=== PATIENT | male | born 1955 | race Caucasian/White ===

== ENCOUNTER 2021-05-22 16:39 | Emergency (ER) | payer OTHER, SELFPAY ==
[2021-05-22 16:56] VITALS: BP 151/78; PULSE 66; RESP 16; TEMP 36.9; O2SAT 98
--- NOTE | 2021-05-22 17:45 | DI.RAD_ITS ---
Exam(s) XR SHOULDER RT COMPLETE 2+V EXAM: XR SHOULDER RT COMPLETE 2+V CLINICAL HISTORY: fall/pain TECHNIQUE: COMPARISON: No exams were available for comparison FINDINGS: Five views were obtained. There is lucency of the greater tuberosity of the humerus which is likely to represent a nondisplaced fracture at this site. No additional fracture seen. No glenohumeral dis location. IMPRESSION: RADIATION DOSE DELIVERED: Total DLP
--- NOTE | 2021-05-22 17:48 | ED.GENADUL_ITS ---
Discharge Plan Disposition Patient Disposition: HOME Condition: Stable Discharge Details Clinical Impression: Humeral fracture Primary Care Provider: None,None ED Provider: Wilian Appiah Home Meds and New Rx's Prescriptions: Continued iron 18 MG tablet 0RF Discharge Instructions Additional Instructions: X-ray reveals fracture, I spoke with our orthopedic team who is aware of your injury, recommends placing you into a sling and they will be happy to see you in the office. [id number] Tylenol and/or Motrin as directed for discomfort. Cool compresses every 2 hours for 20 minutes. Please watch for new or worsening symptoms and return to the ER for any concerns. Please contact the office of Dr. Telles Monday morning to set up outpatient. Referrals: Naif Telles MD [ [facility] STAFF PHYSICIAN] - Medical Decision Making 65-year-old gentleman, [id number], reports falling at work twice 1 week ago injuring his right shoulder. He denies any other injuries. He reports that the shoulder is not improving so he came to the ER for further evaluation. No obvious deformity, no obvious dislocation but concern for fracture versus internal derangement X-ray reveals a nondisplaced fracture of the greater humeral tuberosity Case discussed with Dr. Telles, recommends sling and he will be happy to see the patient in his office next week Discussed x-ray and plan with patient. Sling applied. He has no additional questions or concerns and is comfortable discharge. He was placed on the orthopedic list. Standard discharge and return precautions provided This documentation was generated using [employer] dictation system, please disregard any oddities of phrase or misspellings. Medical Records Medical records reviewed: Yes I reviewed the patient's medical records. Imaging Data Radiologic Study: Attestation: I personally reviewed and interpreted this imaging study as follows: Imaging: X-Ray Radiologist's impression: PROCEDURE INFORMATION: Exam: XR Right Shoulder Exam date and time: 05/22/2021 5:46 PM Age: 65 years old Clinical indication: Injury or trauma; Fall; Blunt trauma (contusions or hematomas); Shoulder; Right; Injury date: 05/16/21 TECHNIQUE: Imaging protocol: XR Right shoulder. Views: 2 or more views. COMPARISON: No relevant prior studies available. FINDINGS: Bones/joints: AP view of the shoulder suggests a subtle fracture involving the greater tuberosity of the humerus. The fracture is nondisplaced and is not seen on other projections. The glenohumeral and acromioclavicular joints are normal. Soft tissues: Normal. No calcification. IMPRESSION: Suspected nondisplaced fracture involving the greater humeral tuberosity. HPI General Mode of arrival: ambulatory . Date/Time Provider Initiated Documentation: 05/22/21 17:09 . Limitations to Documentation: no limitations . Information obtained by: patient . History of Present Illness 65 year old M presents to the emergency department with the chief complaint of R shoulder pain, described as moderate, with intensity rated at 7. Quality is described as aching, and is localized to the right and upper extremity. Patient reports no radiation. Patient started experiencing this week(s) (1) and it has been constant. improves with Immobilization improves symptom(s), Movement worsens symptoms . Patient notes no other symptoms.. Patient did receive the following treatments prior to arrival, NSAID Related Data Home Medications Medication Instructions Recorded Confirmed iron 18 mg tablet 04/03/17 Allergies Allergy/AdvReac Type Severity Reaction Status Date / Time codeine AdvReac Unverified 05/22/21 17:02 General Stated Complaint: Orthopedic IVETTE: 4 Review of Systems Constitutional Constitutional: Denies headache(s) ENT Ears, Nose, Mouth, and Throat: Denies headache(s) and Denies neck pain Musculoskeletal Musculoskeletal: Denies deformity, Reports arthralgias, Denies neck pain, Denies numbness, Reports stiffness and Denies tingling Integumentary/Breasts Skin/Breast: Denies rash Neurologic Neurologic: Denies headache(s), Denies numbness and Denies tingling PFSH All Active Problems Humeral fracture (Acute) Social History Smoking/Tobacco Use Status: Former Tobacco Use Smoking risk assessment performed?: Yes Drug use: Never Substance use type: does not use Do you feel safe in your relationship?: Yes Exam Const General: cooperative, healthy appearing, comfortable and no acute distress Orientation: alert and awake [facility] Head: normal to inspection, normocephalic and atraumatic Eyes General: appearance normal, both eyes and all related structures Conjunctivae: conjunctivae normal Neck Neck: normal visual inspection, full ROM, trachea midline, supple and nontender Chest Chest: normal inspection of the chest and normal palpation of entire chest wall Resp Effort & Inspection: normal respiratory effort and able to speak in complete sentences Auscultation: clear to auscultation bilaterally Cardio Rate: regular rate Rhythm: regular rhythm Back/Spine/Pelvis Back: No back tenderness Skin General skin exam: no rashes or lesions noted Neuro General: patient alert, patient awake, moves all extremities and no focal motor deficits Cognition: normal cognition Speech: speech normal Gait: normal gait Motor: muscle tone normal throughout Sensory Exam: no sensory deficits noted Extrem Other: Right shoulder visual inspection unremarkable. Right elbow, forearm, wrist, hand unremarkable. Normal radial pulse and capillary refill. Arm is held in adduction. The right shoulder has limited range of motion secondary to discomfort, difficulty raising above 90 degrees. Diffuse superior and lateral shoulder discomfort. No obvious deformity. Skin is intact. Psych Appearance: grossly normal Mental Status: mental status grossly normal Course Vital Signs Vital signs: Vital Signs Temperature 36.9 C 05/22/21 16:56 Pulse 66 05/22/21 16:56 Respiratory Rate 16 05/22/21 16:56 Blood Pressure 151/78 H 05/22/21 16:56 Pulse Oximetry 98 05/22/21 16:56 Temperature 36.9 C 05/22/21 16:56 Temperature Source Skin 05/22/21 16:56 Pulse 66 05/22/21 16:56 Respiratory Rate 16 05/22/21 16:56 Respiratory Effort 05/22/21 16:56 Blood Pressure 151/78 H 05/22/21 16:56 Blood Pressure Position Sitting 05/22/21 16:56 Pulse Oximetry 98 05/22/21 16:56 Oxygen Delivery Method Room Air 05/22/21 16:56 Oxygen Flow Rate 0 05/22/21 16:56 Pain Level 6 05/22/21 16:56
--- NOTE | 2021-05-22 18:38 | DI.VRAD_ITS ---
PROCEDURE INFORMATION: Exam: XR Right Shoulder Exam date and time: 05/22/2021 5:46 PM Age: 65 years old Clinical indication: Injury or trauma; Fall; Blunt trauma (contusions or hematomas); Shoulder; Right; Injury date: 05/16/21 TECHNIQUE: Imaging protocol: XR Right shoulder. Views: 2 or more views. COMPARISON: No relevant prior studies available. FINDINGS: Bones/joints: AP view of the shoulder suggests a subtle fracture involving the greater tuberosity of the humerus. The fracture is nondisplaced and is not seen on other projections. The glenohumeral and acromioclavicular joints are normal. Soft tissues: Normal. No calcification. IMPRESSION: Suspected nondisplaced fracture involving the greater humeral tuberosity. Dictated and Authenticated by: Alfredo Barraza MD. Ordering:RAMON Cedeno MD
== END 2021-05-22 18:51 | disposition home or self-care (01) ==
LOC: RED 17:06 → ER 17:08
PROVIDERS: Emergency Provider Physician Assistant
DX: S42.254A Nondisplaced fracture of greater tuberosity of right humerus, initial encounter for closed fracture (principal); W18.39XA Other fall on same level, initial encounter; Y99.0 Civilian activity done for income or pay
CPT/HCPCS: 99283; 73030

== ENCOUNTER 2021-06-07 15:21 | Outpatient (CLI) | payer OTHER, SELFPAY ==
--- NOTE | 2021-06-07 13:45 | DI.RAD_ITS ---
Exam(s) XR SHOULDER RT COMPLETE 2+V EXAM: XR SHOULDER RT COMPLETE 2+V CLINICAL HISTORY: right humerus fracture. TECHNIQUE: 2D digital imaging was performed. COMPARISON: CR,XR XR SHOULDER RT COMPLETE 2+V from 05/22/2021 FINDINGS: Two views, compared to prior study 05/22/2021 There is a fracture of the greater tuberosity noted. This is similar in appearance to the May 22 images. No significant displacement at this time. IMPRESSION: DATA REPOSITORY: RADIATION DOSE DELIVERED:
== END 2021-06-07 15:22 | disposition home or self-care (01) ==
LOC: DIORS 15:21
PROVIDERS: Visit Provider Physician Assistant
DX: S42.254A Nondisplaced fracture of greater tuberosity of right humerus, initial encounter for closed fracture (principal); W18.39XA Other fall on same level, initial encounter
CPT/HCPCS: 73030

== ENCOUNTER 2021-07-19 14:28 | Outpatient (CLI) | payer OTHER, SELFPAY ==
--- NOTE | 2021-07-19 14:15 | DI.RAD_ITS ---
Exam(s) XR SHOULDER RT COMPLETE 2+V EXAM: XR SHOULDER RT COMPLETE 2+V INDICATION: right humerus fracture. COMPARISON: CR,XR XR SHOULDER RT COMPLETE 2+V from 05/22/2021 CR XR SHOULDER RT COMPLETE 2+V from 06/07/2021 TECHNIQUE: 2D digital imaging was performed. Two views. FINDINGS: There has been no change in the position of the nondisplaced fracture fragment at the greater tubero sity. No new findings. DATA REPOSITORY: RADIATION DOSE DELIVERED:
== END 2021-07-19 14:29 | disposition home or self-care (01) ==
LOC: DIORS 14:29
PROVIDERS: Visit Provider Student in an Organized Health Care Education/Training Program
DX: S42.254D Nondisplaced fracture of greater tuberosity of right humerus, subsequent encounter for fracture with routine healing (principal); W18.39XD Other fall on same level, subsequent encounter
CPT/HCPCS: 73030

== ENCOUNTER 2021-08-23 15:32 | Outpatient (CLI) | payer OTHER, SELFPAY ==
--- NOTE | 2021-08-23 15:15 | DI.RAD_ITS ---
Exam(s) XR SHOULDER RT COMPLETE 2+V EXAM: XR SHOULDER RT COMPLETE 2+V INDICATION: follow up. COMPARISON: CR XR SHOULDER RT COMPLETE 2+V from 06/07/2021 CR XR SHOULDER RT COMPLETE 2+V from 07/19/2021 TECHNIQUE: 2D digital imaging was performed. Two views. FINDINGS: There is continued healing at the greater tuberosity fracture. No new abnormalities are seen. DATA REPOSITORY: RADIATION DOSE DELIVERED:
== END 2021-08-23 15:33 | disposition home or self-care (01) ==
LOC: DIORS 15:33
PROVIDERS: Visit Provider Physician Assistant Surgical
DX: S42.254D Nondisplaced fracture of greater tuberosity of right humerus, subsequent encounter for fracture with routine healing (principal); W18.39XD Other fall on same level, subsequent encounter
CPT/HCPCS: 73030

== ENCOUNTER 2022-01-21 10:18 | Outpatient (CLI) | payer MEDICARE, SELFPAY ==
--- NOTE | 2022-01-21 | DI.RAD_ITS ---
Exam(s) XR WRIST LT COMPLETE EXAM: XR WRIST LT COMPLETE CLINICAL HISTORY: eal L wrist pain and swelling, h/o fusion. TECHNIQUE: 2D digital imaging was performed. COMPARISON: CR RIGHT WRIST COMPLETE from 05/07/2009 CR RIGHT WRIST COMPLETE from 06/09/2009 CR RIGHT WRIST COMPLETE from 07/02/2009 CR RIGHT WRIST COMPLETE from 08/03/2009 CR XR WRIST RT COMPLETE from 01/21/2022 FINDINGS: Three views left wrist: There is a dorsal fusion plate extending from the distal 3rd of the radius to the mid aspect of the 3 rd metacarpal. The plate is fractured at its mid aspect dorsal to the radiocarpal joint. There is an additional obl ique longer screw at this level which extends into the scaphoid-navicular bone. There is some fusion evident. However, there is significant lucency around the plate at the metacarp al level, consistent with loosening. There is no radiographic evidence of osteomyelitis. IMPRESSION: Fractured mid level of the plate and loosening of the distal aspect of the plate at the 3rd metacarpa l level. DATA REPOSITORY: RADIATION DOSE DELIVERED:
--- NOTE | 2022-01-21 10:15 | DI.RAD_ITS ---
Exam(s) XR WRIST RT COMPLETE EXAM: XR WRIST RT COMPLETE CLINICAL HISTORY: eval worsening pain and swelling. h/o fusion. TECHNIQUE: 2D digital imaging was performed. COMPARISON: CR RIGHT WRIST COMPLETE from 08/03/2009 FINDINGS: 3 views Dorsal fusion plate again noted which is not fractured and does not reveal evidence loosening. There has been progressive osseous fusion across the radiocarpal joint as well as across the capitate . IMPRESSION: Fusion evident. Intact hardware with no evidence of loosening (as is evident on the opposite-left si de) DATA REPOSITORY: RADIATION DOSE DELIVERED:
== END 2022-01-21 10:19 | disposition home or self-care (01) ==
LOC: DIORS 10:18
PROVIDERS: Visit Provider Student in an Organized Health Care Education/Training Program
DX: G56.03 Carpal tunnel syndrome, bilateral upper limbs; M25.531 Pain in right wrist; M25.532 Pain in left wrist
CPT/HCPCS: 99213; 73110

== ENCOUNTER → 2022-02-18 08:39 | Outpatient (BNVA) | payer MEDICARE, SELFPAY | PROVIDERS: Visit Provider Student in an Organized Health Care Education/Training Program | DX: M25.531 Pain in right wrist (principal); M25.532 Pain in left wrist; G56.03 Carpal tunnel syndrome, bilateral upper limbs; T84.84XA Pain due to internal orthopedic prosthetic devices, implants and grafts, initial encounter | CPT/HCPCS: 99213 ==

== ENCOUNTER → 2022-04-15 08:49 | Outpatient (BNVA) | payer MEDICARE, SELFPAY | PROVIDERS: Visit Provider Student in an Organized Health Care Education/Training Program | DX: G56.03 Carpal tunnel syndrome, bilateral upper limbs (principal); T84.84XA Pain due to internal orthopedic prosthetic devices, implants and grafts, initial encounter | CPT/HCPCS: 99212 ==

== ENCOUNTER 2022-04-25 03:23 | Outpatient (CLI) | payer MEDICARE, SELFPAY ==
[2022-04-25 16:52] LABS: ESR 69 mm/hr (0-20)
[2022-04-25 17:37] LABS: C-Reactive Protein 2.43 mg/dL (0.0-0.3)
[2022-04-26 17:44] LABS: Rheumatoid Factor 96.3 IU/mL (<12.0)
[2022-04-28 14:50] LABS: ANA Interpretation Positive (Negative); ANA Titer Pattern 1:320 Homogeneous
== END 2022-04-25 03:24 | disposition home or self-care (01) ==
LOC: LBO 03:23
PROVIDERS: Visit Provider Student in an Organized Health Care Education/Training Program
DX: M25.50 Pain in unspecified joint (principal); M25.531 Pain in right wrist; M25.532 Pain in left wrist; M79.641 Pain in right hand; M79.642 Pain in left hand; R20.0 Anesthesia of skin; R20.2 Paresthesia of skin; G56.03 Carpal tunnel syndrome, bilateral upper limbs
CPT/HCPCS: 36415; 85652; 86038; 86140; 86431

== ENCOUNTER 2022-04-27 06:53 | Day surgery (SDC) | payer MEDICARE, SELFPAY ==
[2022-04-27 07:00] VITALS: BP 126/78; PULSE 105; RESP 18; TEMP 37.1; O2SAT 98
--- NOTE | 2022-04-27 07:15 | W.PREOPHP ---
Assessment and Plan Assessment and plan (1) Painful orthopaedic hardware: Status: Acute (2) Bilateral carpal tunnel syndrome: Status: Acute Assessment and plan: Damion is a 66-year-old who has painful heart about the left wrist. He also has bilateral carpal tunnel syndrome. Please the previous office note for complete detailed history. However, he is here today for left carpal tunnel release as well as left hardware removal. This will be followed by the right carpal tunnel release in about 2 weeks. I discussed the surgery with him. I reviewed the risk of the procedure to include bleeding, infection, pain, stiffness, damage nerves and vessels, damage to muscle and tendons, incomplete release, persistent numbness. Despite these risk, he elects to proceed. History of Present Illness History of Present Illness Chief Complaint: Painful left wrist hardware, bilateral carpal tunnel syndrome Narrative: Damion is a 66-year-old who has had previous surgery to both wrists. He has broken hardware in the left wrist which is causing pain and potentially causing damage to nearby tendons and is therefore need to be removed. He also has bilateral carpal tunnel syndrome. Please the previous office notes for complete detailed history. However, he is here today for the left hardware removal with left carpal tunnel release to be followed by the right side in the near future. He denies any new medical issues. No chest pain or shortness of breath. No new numbness or tingling except for his ongoing carpal tunnel syndrome. Review of Systems All systems reviewed & are unremarkable except as noted in HPI and below PFSH All Active Problems Right wrist pain (Acute) Bilateral carpal tunnel syndrome (Acute) Left wrist pain (Acute) Painful orthopaedic hardware (Acute) Polyarthralgia (Acute) Medical History Arthritis Surgical History H/O foot surgery broke toes and re-aligned History of gastric surgery open stomach surgery, partial removal of stomach Status post fusion of wrist left Status post fusion of wrist right Social History Smoking/Tobacco Use Status: Former Tobacco Use Quit Date: 03/20/99 Smoking risk assessment performed?: Yes Drug use: Never Substance use type: does not use Do you feel safe at home: Yes Do you feel safe in your relationship?: Yes Meds Allergies and Home Medications Allergies Allergy/AdvReac Type Severity Reaction Status Date / Time codeine AdvReac Unknown UNKNOWN Unverified 04/25/22 14:47 seafood Allergy Intermediate Other (See Uncoded 04/25/22 14:47 Comment) Home Medications Medication Instructions Recorded Confirmed Type iron 18 mg tablet 18 mg PO DIRECTED 04/03/17 04/27/22 History celecoxib 200 mg capsule 200 mg PO BID PRN pain #60 caps 02/18/22 04/27/22 Rx Exam Const General: cooperative, healthy appearing, comfortable and no acute distress Resp Auscultation: clear to auscultation bilaterally Cardio Rate: regular rate Rhythm: regular rhythm
--- NOTE | 2022-04-27 07:17 | W.PM.DSUDISC ---
Date of service: 04/27/22 Time of Service: 09:59 Discharge Plan Disposition Patient Disposition: Home Condition: Good Discharge Details Reason For Visit: Left wrist painful hardware and carpal tunnel Attending Provider: Naif Telles Primary Care Provider: Unknown,Unknown Home Meds and New Rx's Prescriptions: New hydrocodone-acetaminophen 5-325 mg tablet 1 tab PO Q6H PRN (Reason: severe pain) Qty: 6 0RF Rx Instructions: Take one tablet up to every 6 hours as needed for severe postoperative pain acetaminophen 500 mg tablet 500 mg PO Q6H PRN (Reason: pain) Qty: 60 2RF Continued celecoxib 200 mg capsule 200 mg PO BID PRN (Reason: pain) Qty: 60 3RF iron 18 MG tablet 18 mg PO DIRECTED Discharge Instructions Additional Instructions: Wrist Hardware Removal And Carpal Tunnel Release Discharge Instructions Activity: You should keep the hand/wrist elevated as much as possible for the first few days. You may use the other fingers as tolerated but avoid trying to do too much too soon. You may perform light activities with the splint in place. Dressing/Cast: Your splint should stay in place at all times. Do NOT get it wet. You may loosen the ALEXANDRU wrap if you feel it is too tight and then rewrap more loosely. Medications: - You should take Tylenol and Celebrix for baseline pain control. - You have been prescribed a stronger pain medication, Hydrocodone, for breakthrough pain. - You may apply ice over the wrist, just double bag so it doesn't get wet. Follow-up: 10-14 days Stand Alone Forms: Koki Ibarra Tunnel Evan Mckinnon (TIGIST) Equipment/Supplies: Sling Activity:: Elevate Remove Dressings/Wound Care:: Do Not Remove Shower/Bathe:: Cover Diet:: As Tolerated Discharge Orders Discharge Orders: Discharge Order (Routine); Ordered 04/27/22 Ordered By: Gabriela Arita DS: Diagnosis Discharge Diagnosis (1) Painful orthopaedic hardware: Status: Acute (2) Bilateral carpal tunnel syndrome: Status: Acute
--- NOTE | 2022-04-27 07:24 | ANES.PREOP_ITS ---
General Info Date of Service Date Performed: 04/27/22 Height: 5 ft 8 in Weight: 57.8 kg Body Mass Index (BMI): 19.3 Surgical Procedure: Operation Date: 04/27/22 08:10 Proposed Procedure Side Surgeon p Hardware Removal Wrist Left Naif Telles MD s Wrist ECTR Left Naif Telles MD Meds Allergies and Home Medications Allergies Allergy/AdvReac Type Severity Reaction Status Date / Time codeine AdvReac Unknown UNKNOWN Unverified 04/25/22 14:47 seafood Allergy Intermediate Other (See Uncoded 04/25/22 14:47 Comment) Home Medication Medication Instructions Recorded iron 18 mg tablet 18 mg PO DIRECTED 04/03/17 celecoxib 200 mg capsule 200 mg PO BID PRN pain #60 caps 02/18/22 Current Visit Medications: Current Medications Generic Name Dose Route Start Last Admin Trade Name Freq PRN Reason Stop Dose Admin Acetaminophen 650 mg 04/27/22 07:16 Acetaminophen 325 Mg Tab PO Q4H PRN PRN Hydrocodone Bitart/Acetaminophen 0 tab 04/27/22 07:16 Hydrocodone 5/Acetaminophen 325 Tab PO Q3H PRN PRN Pain Ringer's Solution 1,000 mls @ 80 mls/hr 04/27/22 06:00 IV 05/26/22 23:59 INFUSION HECTOR Cefazolin Sodium/Dextrose 2 gm in 50 mls @ 100 mls/hr 04/27/22 06:00 Ancef Duplex IVPB 04/27/22 16:00 PREOP HECTOR IV Miscellaneous Supplies 1 each 04/27/22 06:00 Iv Access IV 05/26/22 23:59 DIRECTED HECTOR Sodium Chloride 0 ml 04/27/22 06:00 Normal Saline Flush 10 Ml Syr IV 05/26/22 23:59 PRN PRN Sodium Chloride 0 ml 04/27/22 06:00 Normal Saline 10 Ml Vial IJ 05/26/22 23:59 DIRECTED PRN Sterile Water 0 ml 04/27/22 06:00 Water,Injection,Sterile 10 Ml Vial IJ 05/26/22 23:59 DIRECTED PRN PFSH Active Problems Active Problems: Problem Status Onset Code Right wrist pain M25.531 Bilateral carpal tunnel syndrome G56.03 Left wrist pain M25.532 Painful orthopaedic hardware T84.84XA Polyarthralgia M25.50 Medical History Medical History Arthritis Surgical History Surgical History (Updated 04/27/22 @ 07:22 by Janiya Gan RN) H/O foot surgery broke toes and re-aligned History of gastric surgery open stomach surgery, partial removal of stomach Status post fusion of wrist left Status post fusion of wrist 05/27/09 right Tobacco Smoking/Tobacco Use Status: Former Tobacco Use Substance Use Substance use: Never Substance use type: does not use Vital Signs and Lab Results Vital Signs Most Recent Vital Signs in EMR: Most Recent Vital Signs Temp Pulse Resp BP Pulse Ox 37.1 C 105 H 18 126/78 98 04/27/22 07:00 04/27/22 07:00 04/27/22 07:00 04/27/22 07:00 04/27/22 07:00 Lab Results Blood Type / Crossmatch: No Data to Display Complete Blood Count: No Data to Display Complete Metabolic Panel: C-Reactive Protein 2.43 mg/dL (0.0-0.3) H 04/25/22 16:37 Liver Function Panel: No Data to Display Coagulation Panel: No Data to Display Cardiac Panel: No Data to Display Arterial Blood Gas: No Data to Display Venous Blood Gas: No Data to Display Pancreas Panel: No Data to Display Thyroid Panel: 2 No Data to Display Infectious Disease: No Data to Display Blood Cultures: No Data to Display Toxicology Panel: No Data to Display Anesthesia Assessment and Plan Anesthesia History Personal History: No History of Anesthesia Complications Family History: No Family History of Anesthesia Complications Exercise Tolerance Exercise Tolerance: Metabolic Equivalents>4 Pertinent Negatives Pertinent Negatives: No Symptoms of GERD Cardiac & Pulmonary Exam Cardiac Exam: Normal S1/S2 Heart Sounds Pulmonary Exam: Clear Bilateral Breath Sounds Implantable Cardiac Device Does patient have a Pacemaker or an ICD?: No Airway Exam Known Difficult Airway: No Mallampati Class: 2 Mouth Opening: Normal (> 3cm) Thyromental Distance: Greater than 3 cm Neck Range of Motion: Full ROM Neck Circumference: Normal Teeth Condition: Removable Dentures/Plates Upper ASA Classification ASA Score: ASA 2 Emergency Case?: No NPO Status NPO Status: NPO Clears >2 hours, Solids >8 hours Anesthesia Plan Resuscitation Status: Full Code Anesthesia Technique: General Anesthesia Airway Planned: LMA Monitors Used: Standard Monitors
[2022-04-27 07:30] VITALS: BMI 19.3
[2022-04-27] MEDS: Lactated Ringers 1,000 ML 80 ML IV (07:44)
[2022-04-27] MEDS: ceFAZolin 2 GM/50 ML BAG IVPB (07:57)
[2022-04-27] MEDS: Bupivacaine 0.25% Pres-Free 30 ML VIAL (08:33)
[2022-04-27 09:20] VITALS: BP 130/73; PULSE 75; RESP 16; TEMP 36.1; O2SAT 97
--- NOTE | 2022-04-27 09:31 | W.ANESPOSTOP ---
Postoperative Evaluation Date, Time and Location Date Performed: 04/27/22 Time Performed: 09:31 Patient Location: Day Surgery Unit Vital Signs Most Recent Imported Vital Signs: Most Recent Vital Signs Temp Pulse Resp BP Pulse Ox 36.1 C L 75 16 130/73 97 04/27/22 09:20 04/27/22 09:20 04/27/22 09:20 04/27/22 09:20 04/27/22 09:20 Pain Score Most Recent Pain Score: Most Recent Pain Score Pain Level 0 04/27/22 09:20 Assessment Mental Status: Awake (Alert & Oriented to Patient Baseline) Airway and Respiratory Function: Patent airway with normal (patient baseline) respiratory exam Cardiovascular Function: Hemodynamically Stable Hydration Status: Adequately Hydrated Nausea & Vomiting: No Nausea or Vomiting Pain: Pt. Denies Any Pain Peripheral Nerve Block: Patient did not receive a nerve block
--- NOTE | 2022-04-27 09:50 | ROE_ITS ---
Date of service: 04/27/22 Time of Service: 08:30 Operative Note Operative Note DATE OF PROCEDURE: 04/27/22 PRE-OP DIAGNOSIS: Left Carpal Tunnel Syndrome and Loose, Painful Hardware - Left Wrist POST-OP DIAGNOSIS: same PROCEDURE: Left Endoscopic Carpal Tunnel Release, Removal of Hardware (Deep) from Left Wrist SURGEON: Naif Telles INFORMATION AND DATA ARCHITECT ANALYST: Gabriela Arita ANESTHESIA TYPE: General LMA/ETT Refer to Anesthesia Record ESTIMATED BLOOD LOSS: 0 PATHOLOGY: none sent TOURNIQUET TIME: 30 COMPLICATIONS: None Patient was transported to: same day Patient's condition: stable Indications: I have seen Damion in clinic for symptoms of carpal tunnel syndrome and painful, loose, and broken hardware of the left wrist. The numbness, tingling, and pain limited function. Clinical exam findings confirmed the diagnosis of carpal tunnel syndrome. Nonoperative measures such as bracing, time, activity modific ations had been tried but disability and pain persisted. I discussed carpal tunnel release along with hardware removal with the patient. I reviewed the risks of the procedure to include, but not limited to, bleeding, infection, pain, stiffness, incomplete release, damage to nerves or vessels, persistent numbness, recurrence, pain, fracture. Despite these risks, the patient elected to proceed. Findings: There was tightened carpal tunnel. This was dilated and released successfully with the endoscopic with increased space within the tunnel. The antebrachial fascia was released proximally freeing the median nerve at the wrist. The dorsal wrist plate and screws were loose. No screws had significant bite. The plate was broken. All screws and the plate was removed. There was extensive bony change as well as synovitis with metallic debris which was resected. There was no significant fusion across the wrist joint. Procedure Description: Damion was greeted in the preoperative holding area where the correct side was identified and marked. The consent was reviewed with the patient and signed. The history and physical was updated. All questions were answered. Damion was taken back to the operating room. The patient was placed into the supine position on the operating room table with the right arm on an arm board. A nonsterile tourniquet was placed high onto the arm. All bony prominences were well padded. Prophylactic antibiotics in the form of Cefazolin were administered. The right arm was then prepped with Chloraprep and draped in a standard fashion with stockinette and extremity drape. A timeout to confirm correct identity, side and site, procedure, allergies, anesthesia, and medical concerns was performed. The surgical site was marked in the volar wrist creases in line with the radial border of the fourth ray. This area was anesthetized with approximately 6cc of 0.25% bupivacaine. The previous dorsal incision was marked on the skin and also injected with 0.25% bupivacaine. The limb was then exsanguinated with an Esmarch. Starting with the carpal tunnel, the skin was incised with a 15 blade, approximately 1cm. The skin only was cut and the deeper tissue was dissected bluntly with a tenotomy scissor, avoiding passing nerve and venous structures. The fascia was penetrated and opened bluntly. A two-prong skin hook was placed under this proximal fascial edge. A series of hamate finders were used to identify and dilate the carpal tunnel. Synovial elevator was used to free synovial attachments to the underside of the transverse carpal ligament. My thumb was kept in the palm to kushal the distal extent of the carpal tunnel and correctly position the hand. The Microaire endoscope was inserted without difficulty and without resistance. Excellent visualization showed horizontally running fibers of the transverse carpal ligament (TCL). The distal extent of the TCL was visualized and the end of the scope palpated with the thumb. The blade was elevated and withdrawn from distal to proximal. The TCL was split into two flaps. The endoscope was reinserted to confirm complete release and any remnant ligament was incised. The scope was withdrawn and the proximal aspect of the carpal tunnel was grossly inspected and appeared release with the median nerve visible. The antebrachial fascia at the level of the wrist was then freed from the overlying skin and then the underlying median nerve with blunt dissection. This was transected longitudinally for about 3cm proximal to the wrist incision. The wound was then irrigated with easy flow of irrigant distally and proximally. The incision was closed with a single 4-0 Nylon suture. Attention was then turned to the dorsal wrist for hardware removal. The previous incision was incised. Skin was incised sharply. Any crossing venous structures were removed and the space between the extensor tendons was identified and incised for deep access. There is no significant extensor retinaculum appreciable. There is obvious metallic debris and a alan discoloration of some soft tissues. The plate was identified. The soft tissues overlying the plate were then incised sharply and were resected both with a knife as well as lanza elevator. This showed significant synovitis, inflammatory change, metallic debris around the plate and screws. The majority of the screws identified distally were loose. They were removed without difficulty. After the screws of the distal half of the plate were removed the distal half of the plate was also removed. There is significant erosion into the bone as well as reactive bone seen. I did not remove any of this bone in this area but I did debride sharply both with a knife and a rongeur the excessive amount of soft tissue which was present around the plate which had significant metallic debris and discoloration. Extension of the incision was taken proximally to expose the proximal half of the plate. The screws were removed once again without difficulty. The proximal half of the plate was also removed. Further inspect ion now showed that there was no fusion of the wrist joint. There is significant amount of soft tissue in this region. While I did not fully take down this pseudojoint I did remove the surrounding soft tissue from where the plate was of anything that appeared to be inflamed and discolored and nonstructural. This wound was then thoroughly irrigated. The deep portions of the wound were injected with 0.25% bupivacaine. The tourniquet was deflated. There was some generalized ooze but there was no strong arterial or venous bleeding. The capsule which was overlying the plate previously was re approximated with 0 Vicryl. A portion of the soft tissues were then mobilized and reapproximated with a 2-0 Vicryl to reconstitute an extensor retinaculum. The remaining deep subcutaneous structures were closed with a buried 3-0 Vicryl. The skin was closed with 4-0 nylon in interrupted fashion. The wound was dressed with Xeroform, gauze, Webril. A short wrist splint was then applied. The patient tolerated the procedure well and was returned to the Same Day Surgery area in a stable condition suffering no known complication.
[2022-04-27 10:00] VITALS: BP 153/84; PULSE 73; RESP 18; TEMP 36.5; O2SAT 99
== END 2022-04-27 10:40 | disposition home or self-care (01) ==
PROVIDERS: Visit Provider Student in an Organized Health Care Education/Training Program
PROC: (CPT 20680; principal; 2022-04-27 08:00)
PROC: 01N54ZZ Release Median Nerve, Percutaneous Endoscopic Approach (ICD-10-PCS; CPT 29848; 2022-04-27 08:00)
DX: T84.84XA Pain due to internal orthopedic prosthetic devices, implants and grafts, initial encounter (principal); G56.02 Carpal tunnel syndrome, left upper limb
CPT/HCPCS: 20680; 29848; J0690; J2704

== ENCOUNTER → 2022-05-06 08:50 | Outpatient (BNVA) | payer MEDICARE, SELFPAY | PROVIDERS: PCP Family Medicine; Referring Provider Family Medicine; Visit Provider Physician Assistant | DX: Z47.89 Encounter for other orthopedic aftercare (principal); T84.84XD Pain due to internal orthopedic prosthetic devices, implants and grafts, subsequent encounter ==

== ENCOUNTER 2022-05-10 06:05 | Day surgery (SDC) | payer MEDICARE, SELFPAY ==
[2022-05-10 06:15] VITALS: BP 139/92; PULSE 90; RESP 18; TEMP 36.7; O2SAT 99
--- NOTE | 2022-05-10 06:17 | ANES.PREOP_ITS ---
General Info Date of Service Date Performed: 05/10/22 Height: 5 ft 8.5 in Weight: 56.699 kg Body Mass Index (BMI): 18.7 Surgical Procedure: Operation Date: 05/10/22 07:40 Proposed Procedure Side Surgeon p Wrist ECTR Right Naif Telles MD Meds Allergies and Home Medications Allergies Allergy/AdvReac Type Severity Reaction Status Date / Time shellfish derived Allergy Verified 05/10/22 06:07 codeine AdvReac Unknown UNKNOWN Unverified 05/10/22 06:07 seafood Allergy Intermediate Other (See Uncoded 05/10/22 06:07 Comment) Home Medication Medication Instructions Recorded iron 18 mg tablet 18 mg PO DIRECTED 04/03/17 celecoxib 200 mg capsule 200 mg PO BID PRN pain #60 caps 02/18/22 acetaminophen 500 mg tablet 500 mg PO Q6H PRN pain #60 tabs 04/27/22 Current Visit Medications: Current Medications Generic Name Dose Route Start Last Admin Trade Name Freq PRN Reason Stop Dose Admin Ringer's Solution 1,000 mls @ 80 mls/hr 05/10/22 06:00 IV 05/10/22 23:59 INFUSION HECTOR Cefazolin Sodium/Dextrose 2 gm in 50 mls @ 100 mls/hr 05/10/22 06:00 Ancef Duplex IVPB 05/10/22 23:59 PREOP HECTOR IV Miscellaneous Supplies 1 each 05/10/22 06:00 Iv Access IV 05/10/22 23:59 DIRECTED HECTOR Sodium Chloride 0 ml 05/10/22 06:00 Normal Saline Flush 10 Ml Syr IV 05/10/22 23:59 PRN PRN Sodium Chloride 0 ml 05/10/22 06:00 Normal Saline 10 Ml Vial IJ 05/10/22 23:59 DIRECTED PRN Sterile Water 0 ml 05/10/22 06:00 Water,Injection,Sterile 10 Ml Vial IJ 05/10/22 23:59 DIRECTED PRN PFSH Active Problems Active Problems: Problem Status Onset Code History of carpal tunnel surgery of left wrist 04/27/22 Z98.890 Right wrist pain M25.531 Bilateral carpal tunnel syndrome G56.03 Left wrist pain M25.532 Painful orthopaedic hardware T84.84XA Polyarthralgia M25.50 Rheumatoid arthritis involving both hands with positive rheumatoid factor M05.741, M05.742 Medical History Medical History Arthritis H/O fracture of humerus (~05/2021) Surgical History Surgical History (Updated 05/10/22 @ 06:36 by Hanna Barton) H/O foot surgery broke toes and re-aligned History of carpal tunnel release S/P partial gastrectomy for bleeding ulcers Status post fusion of wrist left Status post fusion of wrist 05/27/09 right Tobacco Smoking/Tobacco Use Status: Former Tobacco Use Passive smoking exposure: Yes Second hand exposure: Yes Alcohol Alcohol Intake: current Alcohol intake frequency: holidays/special occasions only Alcohol type: beer Substance Use Substance use: Never Substance use type: does not use Vital Signs and Lab Results Vital Signs Most Recent Vital Signs in EMR: Temp Pulse Resp BP Pulse Ox 36.7 C 90 18 139/92 H 99 05/10/22 06:15 05/10/22 06:15 05/10/22 06:15 05/10/22 06:15 05/10/22 06:15 Lab Results Blood Type / Crossmatch: No Data to Display Complete Blood Count: White Blood Count 10.5 10^3/uL H 05/07/22 00:00 Red Blood Count 4.3 10^6/uL L 05/07/22 00:00 Hemoglobin 12.3 g/dL L 05/07/22 00:00 Hematocrit 39.4 % L 05/07/22 00:00 Platelet Count 369 10^3/uL H 05/07/22 00:00 Complete Metabolic Panel: Sodium 138 (120-150) 05/07/22 00:00 Potassium 4.7 mmol/L (3.5-5.1) 05/07/22 00:00 Chloride 104 mmol/L 05/07/22 00:00 Carbon Dioxide 25 mmol/L 05/07/22 00:00 BUN 25 mg/dL H 05/07/22 00:00 Creatinine 0.79 mg/dL L 05/07/22 00:00 Calcium 9.1 mg/dL 05/07/22 00:00 Albumin 3.7 g/dL 05/07/22 00:00 Glucose 114 mg/dL 05/07/22 00:00 C-Reactive Protein 2.43 mg/dL (0.0-0.3) H 04/25/22 16:37 Liver Function Panel: Alanine Aminotransferase (ALT/SGPT) 6 U/L 05/07/22 00: 00 Aspartate Amino Transf (AST/SGOT) 12 U/L 05/07/22 00:00 Coagulation Panel: No Data to Display Cardiac Panel: No Data to Display Arterial Blood Gas: No Data to Display Venous Blood Gas: No Data to Display Pancreas Panel: No Data to Display Thyroid Panel: No Data to Display Infectious Disease: Hepatitis B Surface Antigen Negative 05/07/22 00:00 Blood Cultures: No Data to Display Toxicology Panel: No Data to Display Anesthesia Assessment and Plan Anesthesia History Personal History: No History of Anesthesia Complications Family History: No Family History of Anesthesia Complications Exercise Tolerance Exercise Tolerance: Metabolic Equivalents>4 Cardiac & Pulmonary Exam Cardiac Exam: Normal S1/S2 Heart Sounds Pulmonary Exam: Clear Bilateral Breath Sounds Implantable Cardiac Device Does patient have a Pacemaker or an ICD?: No Airway Exam Known Difficult Airway: No Mallampati Class: 2 Mouth Opening: Normal (> 3cm) Thyromental Distance: Greater than 3 cm Neck Range of Motion: Limited ROM Neck Circumference: Normal Teeth Condition: Removable Dentures/Plates Upper ASA Classification ASA Score: ASA 2 Emergency Case?: No NPO Status NPO Status: NPO Clears >2 hours, Solids >8 hours Anesthesia Plan Resuscitation Status: Full Code Anesthesia Technique: General Anesthesia Airway Planned: Natural Airway Monitors Used: Standard Monitors Preoperative Comments:: 66 yo male for right ECTR. Sig PMHx: RA (no DMARDs), former smoker (quit 1999), Occ EtOH. Previous Anes: -hardware removal with LMA 4.
[2022-05-10 06:48] VITALS: BMI 18.7
[2022-05-10] MEDS: Lactated Ringers 1,000 ML 80 ML IV (07:01)
--- NOTE | 2022-05-10 07:09 | W.PM.DSUDISC ---
Date of service: 05/10/22 Time of Service: 07:10 Discharge Plan Disposition Patient Disposition: Home Condition: Good Discharge Details Reason For Visit: Right carpal tunnel syndrome Attending Provider: Naif Telles Primary Care Provider: Jennifer Colon Home Meds and New Rx's Prescriptions: Continued celecoxib 200 mg capsule 200 mg PO BID PRN (Reason: pain) Qty: 60 3RF acetaminophen 500 mg tablet 500 mg PO Q6H PRN (Reason: pain) Qty: 60 2RF iron 18 MG tablet 18 mg PO DIRECTED Discharge Instructions Stand Alone Forms: Koki Ibarra Tunnel Release Activity:: Elevate Remove Dressings/Wound Care:: 48 hours Shower/Bathe:: 48 hours Diet:: As Tolerated Discharge Orders Discharge Orders: Discharge Order (Routine); Ordered 05/10/22 Ordered By: Gabriela Arita
--- NOTE | 2022-05-10 07:19 | W.PREOPHP ---
Assessment and Plan Assessment and plan (1) Bilateral carpal tunnel syndrome: Status: Acute Assessment and plan: Damion is a 66-year-old who has bilateral carpal tunnel syndrome. He is status post left carpal tunnel release. He is here today for the right side. Please see the previous office note for complete detailed history. I once again reviewed the technical details of carpal tunnel release and that I perform an endoscopic release, but would make a larger, open, incision if necessary for visualization. I discussed the risks of the procedure to include, but not limited to, bleeding, infection, palmar pain, stiffness, damage to nerves, damage to vessels, damage to tendons, weakness, recurrence, and incomplete release. Given these risks, Damion desires to proceed. History of Present Illness History of Present Illness Chief Complaint: Right carpal tunnel syndrome Narrative: Damion is here today for his right carpal tunnel release. He is status post left carpal tunnel release and removal of hardware on the left side. He is doing well. Please the previous office note for complete detailed history and heart lung examination. Review of Systems All systems reviewed & are unremarkable except as noted in HPI and below PFSH All Active Problems Right wrist pain (Chronic) Bilateral carpal tunnel syndrome (Acute) Left wrist pain (Acute) Painful orthopaedic hardware (Acute) s/p hardware removal DOS: 04/27/22 Polyarthralgia (Acute) Rheumatoid arthritis involving both hands with positive rheumatoid factor (Acute) History of carpal tunnel surgery of left wrist (Acute 04/27/22) Medical History Arthritis H/O fracture of humerus (~05/2021) Surgical History H/O foot surgery broke toes and re-aligned History of carpal tunnel release S/P partial gastrectomy for bleeding ulcers Status post fusion of wrist left Status post fusion of wrist 05/27/09 right Family History Mother Hypertension Endometrial cancer Father , age 49 Stroke Heart disease Sister Thyroid cancer Brother Prostate cancer Brother Heart disease Daughter No problems noted. 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 [employer] Pets and animals: Yes Pets and animals: dog(s) Sexually active: Yes Do you think of yourself as: straight/heterosexual Current gender identity: male What is your relationship status?: How often do you talk on the phone with friends or family?: once per week How often do you get together with friends or relatives?: twice per week How often do you attend orthodox or zoroastrianism services?: decline to answer Do you belong to any clubs or organized social groups?: no Panel score (0-1 are the most socially isolated patients): 2 What type of physical activity do you participate in: walking Duration: > 90 minutes/day Frequency: daily Rosangela/Yarsanism: No preference Special rosangela needs: No Drive intox or ride w/intox commercial collections driver: No Do you feel safe at home: Yes Do you feel safe in your relationship?: Yes Meds Allergies and Home Medications Allergies Allergy/AdvReac Type Severity Reaction Status Date / Time shellfish derived Allergy Verified 05/10/22 06:07 codeine AdvReac Unknown UNKNOWN Unverified 05/10/22 06:07 seafood Allergy Intermediate Other (See Uncoded 05/10/22 06:07 Comment) Home Medications Medication Instructions Recorded Confirmed Type iron 18 mg tablet 18 mg PO DIRECTED 04/03/17 05/10/22 History celecoxib 200 mg capsule 200 mg PO BID PRN pain #60 caps 02/18/22 05/10/22 Rx acetaminophen 500 mg tablet 500 mg PO Q6H PRN pain #60 tabs 04/27/22 05/10/22 Rx Exam Resp Auscultation: clear to auscultation bilaterally Cardio Rate: regular rate Rhythm: regular rhythm Results Last Vital Signs Temp 36.7 C 02/21/23 06:15 Pulse 90 05/10/22 06:15 Resp 18 05/10/22 06:15 BP 139/92 H 05/10/22 06:15 Pulse Ox 99 05/10/22 06:15
[2022-05-10] MEDS: ceFAZolin 2 GM/50 ML BAG IVPB (07:25)
[2022-05-10] MEDS: Lidocaine 1% Pres-Free W/EPI 1/200,000 10 ML VIAL (07:42)
[2022-05-10 07:45] VITALS: BP 93/64; PULSE 89; RESP 16; TEMP 36.4; O2SAT 98
--- NOTE | 2022-05-10 07:46 | W.PM.OP ---
Date of service: 05/10/22 Time of Service: 07:46 Operative Note Operative Note DATE OF PROCEDURE: 05/10/22 PRE-OP DIAGNOSIS: Right Carpal Tunnel Syndrome POST-OP DIAGNOSIS: same PROCEDURE: Right Endoscopic Carpal Tunnel Release SURGEON: Naif Telles ANESTHESIA TYPE: General:No Airway Refer to Anesthesia Record ESTIMATED BLOOD LOSS: 0 PATHOLOGY: none sent TOURNIQUET TIME: 5 COMPLICATIONS: None Patient was transported to: same day Patient's condition: stable Indications: I have seen Damion in clinic for symptoms of carpal tunnel syndrome. The numbness, tingling, and pain limited function. Clinical exam findings confirmed the diagnosis of carpal tunnel syndrome. Nonoperative measures such as bracing, time, activity modifications had been tried but disability and pain persisted. He had a successful carpal tunnel release on the left side. Therefore, I discussed carpal tunnel release with the patient. I reviewed the risks of the procedure to include, but not limited to, bleeding, infection, pain, stiffness, incomplete release, damage to nerves or vessels, persistent numbness, recurrence. Despite these risks, the patient elected to proceed. Findings: There was tightened carpal tunnel. This was dilated and released successfully with the endoscopic with increased space within the tunnel. The antebrachial fascia was released proximally freeing the median nerve at the wrist. Procedure Description: Damion was greeted in the preoperative holding area where the correct side was identified and marked. The consent was reviewed with the patient and signed. The history and physical was updated. All questions were answered. He was taken back to the operating room. The patient was placed into the supine position on the operating room table with the right arm on an arm board. A nonsterile tourniquet was placed high onto the arm. All bony prominences were well padded. Prophylactic antibiotics in the form of Cefazolin were administered. The right arm was then prepped with Chloraprep and draped in a standard fashion with stockinette and extremity drape. A timeout to confirm correct identity, side and site, procedure, allergies, anesthesia, and medical concerns was performed. The surgical site was marked in the volar wrist creases in line with the radial border of the fourth ray. This area was anesthetized with approximately 6cc of 1% Lidocaine. The limb was then exsanguinated with an Esmarch. The skin was incised with a 15 blade, approximately 1cm. The skin only was cut and the deeper tissue was dissected bluntly with a tenotomy scissor, avoiding passing nerve and venous structures. The fascia was penetrated and opened bluntly. A two-prong skin hook was placed under this proximal fascial edge. A series of hamate finders were used to identify and dilate the carpal tunnel. Synovial elevator was used to free synovial attachments to the underside of the transverse carpal ligament. My thumb was kept in the palm to kushal the distal extent of the carpal tunnel and correctly position the hand. The Microaire endoscope was inserted without difficulty and without resistance. Excellent visualization showed horizontally running fibers of the transverse carpal ligament (TCL). The distal extent of the TCL was visualized and the end of the scope palpated with the thumb. The blade was elevated and withdrawn from distal to proximal. The TCL was split into two flaps. The endoscope was reinserted to confirm complete release and any remnant ligament was incised. The scope was withdrawn and the proximal aspect of the carpal tunnel was grossly inspected and appeared release with the median nerve visible. There was a small vertical cut in the skin at the incision inadvertently made by the scope. The antebrachial fascia at the level of the wrist was then freed from the overlying skin and then the underlying median nerve with blunt dissection. This was transected longitudinally for about 3cm proximal to the wrist incision. The wound was then irrigated with easy flow of irrigant distally and proximally. The incision was closed with a single 4-0 Nylon suture. The wound was dressed with Xeroform, Gauze, Kerlix and Wyatt. The tourniquet was deflated with the initial dressing and held with some pressure. Blood flow returned easily to all digits with capillary refill less than 2 seconds. The patient tolerated the procedure well and was returned to the Same Day Surgery area in a stable condition suffering no known complication.
--- NOTE | 2022-05-10 08:00 | W.ANESPOSTOP ---
Postoperative Evaluation Date, Time and Location Date Performed: 05/10/22 Time Performed: 08:00 Patient Location: Day Surgery Unit Vital Signs Most Recent Imported Vital Signs: Most Recent Vital Signs Temp Pulse Resp BP Pulse Ox 36.4 C L 89 16 93/64 L 98 05/10/22 07:45 05/10/22 07:45 05/10/22 07:45 05/10/22 07:45 05/10/22 07:45 Pain Score Most Recent Pain Score: Most Recent Pain Score Pain Level 0 05/10/22 07:45 Assessment Mental Status: Awake (Alert & Oriented to Patient Baseline) Airway and Respiratory Function: Patent airway with normal (patient baseline) respiratory exam Cardiovascular Function: Hemodynamically Stable Hydration Status: Adequately Hydrated Nausea & Vomiting: No Nausea or Vomiting Pain: Pain is tolerable per patient Peripheral Nerve Block: Patient did not receive a nerve block
[2022-05-10 08:15] VITALS: BP 115/84; PULSE 88; RESP 16; TEMP 36.4; O2SAT 98
== END 2022-05-10 08:40 | disposition home or self-care (01) ==
PROVIDERS: PCP Family Medicine; Visit Provider Student in an Organized Health Care Education/Training Program
PROC: 01N54ZZ Release Median Nerve, Percutaneous Endoscopic Approach (ICD-10-PCS; CPT 29848; principal; 2022-05-10 07:30)
DX: G56.03 Carpal tunnel syndrome, bilateral upper limbs (principal)
CPT/HCPCS: 29848; J0690; J2704

== ENCOUNTER → 2022-05-19 08:28 | Outpatient (BNVA) | payer MEDICARE, SELFPAY | PROVIDERS: PCP Family Medicine; Referring Provider Family Medicine; Visit Provider Student in an Organized Health Care Education/Training Program | DX: Z47.89 Encounter for other orthopedic aftercare (principal) ==

== ENCOUNTER → 2022-07-12 09:06 | Outpatient (BNVA) | payer MEDICARE, SELFPAY | PROVIDERS: PCP Family Medicine; Referring Provider Family Medicine; Visit Provider Physician Assistant | DX: Z47.89 Encounter for other orthopedic aftercare (principal); T84.84XA Pain due to internal orthopedic prosthetic devices, implants and grafts, initial encounter ==

== ENCOUNTER 2022-08-26 13:44 | Outpatient (REF) | payer MEDICARE, SELFPAY ==
[2022-08-26 13:28] LABS: Calculated LDL 104 mg/dL (<100); Cholesterol 181 mg/dL (<200); HDL Cholesterol 59 mg/dL (40-60); Triglyceride 94 mg/dL (<150)
== END 2022-08-26 13:45 | disposition home or self-care (01) ==
LOC: LBN 13:44
PROVIDERS: PCP Family Medicine; Visit Provider Family Medicine
DX: M05.741 Rheumatoid arthritis with rheumatoid factor of right hand without organ or systems involvement (principal); M05.742 Rheumatoid arthritis with rheumatoid factor of left hand without organ or systems involvement; E78.79 Other disorders of bile acid and cholesterol metabolism; Z00.00 Encounter for general adult medical examination without abnormal findings
CPT/HCPCS: 80061

== ENCOUNTER 2022-09-28 17:43 | Outpatient (REF) | payer MEDICARE, SELFPAY | END 2022-09-28 17:44 | disposition home or self-care (01) | LOC: LBN 17:43 | PROVIDERS: PCP Family Medicine; Visit Provider Nurse Practitioner Family | DX: S81.851A Open bite, right lower leg, initial encounter; W54.0XXA Bitten by dog, initial encounter | CPT/HCPCS: 87070; 87205 ==

== ENCOUNTER 2022-09-29 16:16 | Emergency (ER) | payer OTHER, SELFPAY ==
[2022-09-29 16:37] VITALS: BP 147/84; PULSE 77; RESP 16; TEMP 37.2; O2SAT 100
--- NOTE | 2022-09-29 17:21 | ED.GENADUL_ITS ---
Discharge Plan Disposition Patient Disposition: Home Discharge Details Clinical Impression: Need for immunization against rabies Primary Care Provider: Jennifer Colon ED Provider: Skip Jang Home Meds and New Rx's Prescriptions: Continued doxycycline hyclate 100 mg capsule 100 mg PO BID Qty: 20 0RF Rx Instructions: Avoid sun exposure. Take with meal. Take 1 pill every 12 hours x 10 days folic acid 400 mcg tablet 0.4 mg PO DAILY methotrexate sodium 2.5 mg tablet 15 mg PO QWEEK celecoxib 200 mg capsule 200 mg PO BID PRN (Reason: pain) Qty: 60 3RF acetaminophen 500 mg tablet 500 mg PO Q6H PRN (Reason: pain) Qty: 60 2RF iron 18 MG tablet 18 mg PO DIRECTED Discharge Instructions Additional Instructions: Please read all of the information that accompanies these instructions. You were seen in the emergency department for your dog bite. You received rabies vaccination and rabies immunoglobulin. You need to have rabies vaccination and 3 days, 7 days, and 14 days. This will be set up through the infusion center. Please schedule an appointment with your primary care provider later this week. Please return to the emergency department if develop any fevers chills nausea or vomiting. Please continue taking your antibiotics as previously directed. Discharge Data Discharge Date/Time-TO BE ENTERED AT DEPARTURE: 09/29/22 20:16 Medical Decision Making This is an overall very well-appearing normothermic and not tachycardic 67-year-old immunocompromised male on methotrexate in the setting of rheumatoid arthritis now 1 day status post dog bite to his right lower extremity on outpatient doxycycline given allergies from urgent care requesting rabies vaccination. Will provide immunoglobulin and rabies vaccine in the ED. Dose of immunoglobulin will be 20 international units/kg. I have filled out paperwork to have the patient receive subsequent rabies vaccines in the event that the dog fails to pass quarantining which has been instituted by animal control. Patient has had no fevers nor chills. No systemic symptoms. No pain out of proportion to suggest necrotizing soft tissue infection. Based on relatively superficial puncture wound I have low concern for retained tooth however will obtain plain films. 09/30 Late charting due to patient care. Negative plain films with no teeth. HPI General Date/Time Provider Initiated Documentation: 09/29/22 17:21 . HPI Narrative: This is a 67-year-old male on methotrexate in the setting of rheumatoid arthritis arrived via private vehicle in the setting of a dog bite that he sustained yesterday to his right lower extremity. 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 He does not know the dog but animal control contacted the dog's optometrist president/practice owner who reported that the dog had had 1 vaccination against rabies at age 1 but no subsequent vaccines. The dog is currently being quarantined. Patient is not a smoker nor drinker. Patient is not anticoagulated. He was seen yesterday at [facility] and received prescription for doxycycline. He has had no fevers chills nausea no vomiting. Related Data Home Medications Medication Instructions Recorded Confirmed iron 18 mg tablet 18 mg PO DIRECTED 04/03/17 09/29/22 acetaminophen 500 mg tablet 500 mg PO Q6H PRN pain #60 tabs 04/27/22 09/29/22 celecoxib 200 mg capsule 200 mg PO BID PRN pain #60 caps 07/07/22 09/29/22 folic acid 400 mcg tablet 0.4 mg PO DAILY 08/26/22 09/29/22 methotrexate sodium 2.5 mg tablet 15 mg PO QWEEK 08/26/22 09/29/22 doxycycline hyclate 100 mg capsule 100 mg PO BID #20 caps 09/28/22 09/29/22 Previous Rx's Medication Instructions Recorded acetaminophen 500 mg tablet 500 mg PO Q6H PRN pain #60 tabs 04/27/22 celecoxib 200 mg capsule 200 mg PO BID PRN pain #60 caps 07/07/22 doxycycline hyclate 100 mg capsule 100 mg PO BID #20 caps 09/28/22 Allergies Allergy/AdvReac Type Severity Reaction Status Date / Time shellfish derived Allergy Verified 09/29/22 16:45 codeine AdvReac Unknown UNKNOWN Unverified 09/29/22 16:45 seafood Allergy Intermediate Other (See Uncoded 09/29/22 16:45 Comment) General Stated Complaint: AnimalBite IVETTE: 4 PFSH All Active Problems (Updated 09/29/22 @ 18:47 by Skip Jang MD) Need for immunization against rabies (Acute) Rheumatoid arthritis involving both hands with positive rheumatoid factor (Acute) Medical History Arthritis H/O fracture of humerus (~05/2021) Surgical History H/O foot surgery broke toes and re-aligned History of carpal tunnel release bilateral Painful orthopaedic hardware s/p hardware removal DOS: 04/27/22 S/P partial gastrectomy for bleeding ulcers Status post fusion of wrist left Status post fusion of wrist 05/27/09 right Family History Mother Hypertension Endometrial cancer Father , age 49 Stroke Heart disease Sister Thyroid cancer Brother Prostate cancer Brother Heart disease Daughter No problems noted. Daughter Stroke Social History Smoking/Tobacco Use Status: Former Tobacco Use Quit Date: 03/20/99 Pack-years: 50 Tobacco: How many years used: 50 Second Hand Exposure: Yes Smoking risk assessment performed?: Yes Alcohol Intake: current Alcohol Intake frequency: holidays/special occasions only Alcohol type: beer Drug use: Never Substance use type: does not use Caregiver/Support person: No Household members: spouse and children Housing: house Number of Children: 4 number of grandchildren: 11 Communication Needs: None Education Level: high school Do you need help understanding health information?: Never 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 [employer] Pets and animals: Yes Pets and animals: dog(s) Sexually active: Yes Do you think of yourself as: straight/heterosexual Current gender identity: male What is your relationship status?: How often do you talk on the phone with friends or family?: once per week How often do you get together with friends or relatives?: twice per week How often do you attend advent or religion services?: decline to answer Do you belong to any clubs or organized social groups?: no Panel score (0-1 are the most socially isolated patients): 2 What type of physical activity do you participate in: walking Duration: > 90 minutes/day Frequency: daily Rosangela/Zoroastrian: No preference Special rosangela needs: No Drive intox or ride w/intox tilt tray driver: No Do you feel safe at home: Yes Do you feel safe in your relationship?: Yes Exam Narrative Exam Narrative: General: Well-appearing in no acute distress speaking in complete sentences. Head: Normocephalic, atraumatic. Eye: Extraocular eye movements intact. No conjunctival injection. No scleral icterus. Ear, nose, mouth, throat: Grossly normal inspection. Normal voice, handling secretions normally. Neck: Trachea midline. Cardiovascular: Well-perfused distal extremities. Respiratory: Nonlabored respiration. Gastrointestinal: Nondistended abdomen. Musculoskeletal: Right lower extremity lateral aspect mid tibia there are 4 superficial healing puncture marin with 1 larger inferior puncture kushal. Patient has full range of motion of his right lower extremity. No underlying bony tenderness. Skin: Normal for age and race, grossly normal temperature and turgor. No acute rash. Neurologic: Alert and appropriate, no apparent acute deficits. Psychiatric: Mood and manner are appropriate. Grooming and personal hygiene are appropriate. Course Vital Signs Vital signs: Vital Signs Temperature 37.2 C 09/29/22 16:37 Pulse 77 09/29/22 16:37 Respiratory Rate 16 09/29/22 16:37 Blood Pressure 147/84 H 09/29/22 16:37 Pulse Oximetry 100 09/29/22 16:37 Temperature 37.2 C 09/29/22 16:37 Temperature Source Tympanic 09/29/22 16:37 Pulse 77 09/29/22 16:37 Respiratory Rate 16 09/29/22 16:37 Respiratory Effort Normal, Non-Labored 09/29/22 16:42 Blood Pressure 147/84 H 09/29/22 16:37 Pulse Oximetry 100 09/29/22 16:37 Oxygen Delivery Method Room Air 09/29/22 16:37 Oxygen Flow Rate 0 09/29/22 16:37 PAWSS Have you Been Recently Intoxicated or Drunk Within the Last 30 days?: No Have you Ever Experienced Previous Episodes of Alcohol Withdrawal?: No Have you ever Experienced Withdrawal Seizures?: No Have you ever Experienced Delirium Tremens(DT)s?: No Have you ever undergone Alcohol Rehabilitation Treatment (i.e, inpt ot outpatient treatment programs)?: No Have you ever Experienced Blackouts?: No Have you ever Combined Alcohol with other Downers within the last 90 days?: No Have you ever Combined Alcohol with any other Substance of Abuse during the last 90 days?: No Result: 0
--- NOTE | 2022-09-29 18:45 | DI.RAD_ITS ---
Exam(s) XR TIB/FIB RT EXAM: XR TIB/FIB RT CLINICAL HISTORY: Dog puncture concern for foreign body. TECHNIQUE: 2D digital imaging was performed. COMPARISON: No exams were available for comparison FINDINGS: Two views No evidence of fracture nor radiopaque foreign body. Vascular calcification in the runoff vessels of the calf noted. No osseous lesions. There is no gas in the soft tissues. IMPRESSION: No acute osseous findings in the tibia and fibula. DATA REPOSITORY: RADIATION DOSE DELIVERED:
--- NOTE | 2022-09-29 19:26 | DI.VRAD_ITS ---
PROCEDURE INFORMATION: Exam: XR Right Tibia and Fibula Exam date and time: 09/29/2022 7:09 PM Age: 67 years old Clinical indication: Injury or trauma; Other: Dog puncture concern for foreign body; Work related; Lower leg; Right; Foreign body involvement not specified TECHNIQUE: Imaging protocol: Radiologic exam of the right tibia and fibula. Views: 2 views. COMPARISON: MR KNEE RT W/O CONTRAST 04/21/2017 8:38 AM FINDINGS: Bones/joints: No fracture. No dislocation. Soft tissues: No radiopaque foreign body. Mild soft tissue swelling. Vasculature: Arterial atherosclerotic calcification of the popliteal artery and trifurcation vessels. IMPRESSION: 1. No soft tissue gas or foreign body. 2. No fracture. Dictated and Authenticated by: Lester Sinclair MD. Ordering:VADIM Valdivia MD
[2022-09-29] MEDS: Rabies Immune Globulin 1,500 UNIT/5 ML VIAL 1200 UNITS IM (20:00)
--- NOTE | 2022-09-30 05:20 | NUR.NOTE ---
lost the vials for documentation-vaccine and immuoglobulin given. do not have expiration date and lot were-had to make them up to chart. Nursing Note:
== END 2022-09-29 20:16 | disposition home or self-care (01) ==
PROVIDERS: Emergency Provider Emergency Medicine; PCP Family Medicine
DX: S81.851A Open bite, right lower leg, initial encounter (principal); W54.0XXA Bitten by dog, initial encounter; Z20.3 Contact with and (suspected) exposure to rabies
CPT/HCPCS: 90471; 96372; 99284; 73590; 90675

== ENCOUNTER 2022-10-13 03:37 | Outpatient (RCR) | payer OTHER, SELFPAY | END 2022-10-17 23:59 | disposition home or self-care (01) | LOC: INF 03:37 | PROVIDERS: PCP Family Medicine; Visit Provider Emergency Medicine | DX: Z20.3 Contact with and (suspected) exposure to rabies (principal) | CPT/HCPCS: 96372; 90675 ==

== ENCOUNTER 2023-10-11 01:29 | Outpatient (CLI) | payer MEDICARE, SELFPAY ==
[2023-10-11 12:24] LABS: Bilirubin Negative (Negative); Blood Trace-intact (Negative); Clarity Clear (Clear); Glucose Negative (Negative); Ketones Negative (Negative); Leukocyte Esterase Negative (Negative); Nitrite Negative (Negative); Specific Gravity 1.025 (1.005-1.025); Urobilinogen 0.2 mg/dL (Up to 0.2); pH 5.5 (5-8)
[2023-10-11 12:27] LABS: Abs Immature Grans 0.02 10^3/uL (0.0-0.06); Absolute Basophil Count 0.06 10^3/uL (0.0-0.2); Absolute Eosinophil Count 0.33 10^3/uL (0.0-0.7); Absolute Lymphocyte Count 2.62 10^3/uL (1.2-3.4); Absolute Neutrophil Count 5.13 10^3/uL (1.2-6.7); Basophils % 0.7 %; Eosinophils % 3.8 %; HCT 49.3 % (40.0-50.0); HGB 16.3 g/dL (13.5-17.5); Immature Grans % 0.2 %; Lymphocytes % 30.3 %; MCH 31.7 pg (27.0-33.0); MCHC 33.1 % (32.0-36.0); MCV 96 fL (80-95); MPV 9.9 fL (8.0-11.0); Monocytes % 5.8 %; Neutrophils % 59.2 %; Platelet Count 255 10^3/uL (130-400); RBC 5.14 10^6/uL (4.36-5.78); RDW 11.5 % (11.8-14.1); RDW-SD 40.2 fL; WBC 8.66 10^3/uL (4.4-10.8)
[2023-10-11 12:33] LABS: Bacteria Negative HPF (Negative); C & S Indicated? No; Casts Negative LPF (Negative); Crystals Negative HPF (Negative); Epithelial Cells Rare HPF (Negative); Mucus Negative (Negative); RBC 0-2 HPF (0-2); WBC 0-2 HPF (0-5)
[2023-10-11 12:37] LABS: ALT 22 U/L (16-63); AST 19 U/L (15-37); Albumin 3.9 g/dL (3.4-5.0); Alkaline Phosphatase 83 U/L (46-116); Anion Gap 8.9 mmol/L (3-11); BUN 18 mg/dL (7-18); Bilirubin, Total 0.41 mg/dL (0.2-1.0); CO2 30.1 mmol/L (21.0-32.0); CREATININE 1.1 mg/dL (0.70-1.30); Calcium 8.6 mg/dL (8.5-10.1); Chloride 100 mmol/L (98-107); Estimated GFR 73.12 (mL/min/1.73m2); Glucose 115 mg/dL (74-106); Potassium 3.8 mmol/L (3.5-5.1); Sodium 139 mmol/L (136-145); Total Protein 6.8 g/dL (6.4-8.2)
[2023-10-11 12:38] LABS: C-Reactive Protein < 0.50 mg/dL (<or=0.5)
[2023-10-11 18:37] LABS: PSA, Screening 2.5 ng/mL (<=4.5)
[2023-10-11 19:13] LABS: Hepatitis C Ab w Rflx HCV PCR Negative (Negative)
== END 2023-10-11 01:30 | disposition home or self-care (01) ==
LOC: LOS 01:29
PROVIDERS: PCP Family Medicine; Visit Provider Family Medicine
DX: I10 Essential (primary) hypertension (principal); M05.741 Rheumatoid arthritis with rheumatoid factor of right hand without organ or systems involvement; M05.742 Rheumatoid arthritis with rheumatoid factor of left hand without organ or systems involvement; Z00.00 Encounter for general adult medical examination without abnormal findings; Z12.5 Encounter for screening for malignant neoplasm of prostate
CPT/HCPCS: 36415; 80053; 84153; 86803; 81003; 81015; 85025; 86140

== ENCOUNTER 2024-05-01 14:06 | Outpatient (REF) | payer MEDICARE, SELFPAY ==
[2024-05-01 21:19] LABS: HCT 45.9 % (40.0-50.0); HGB 15.3 g/dL (13.5-17.5); MCHC 33.3 % (32.0-36.0); MCV 96 fL (80-95); MPV 10.2 fL (8.0-11.0); Platelet Count 226 10^3/uL (130-400); RBC 4.78 10^6/uL (4.36-5.78); RDW 11.9 % (11.8-14.1); RDW-SD 42.2 fL; WBC 8.78 10^3/uL (4.4-10.8)
[2024-05-01 21:47] LABS: Absolute Eosinophil Count 0.18 10^3/uL (0.0-0.7); Absolute Lymphocyte Count 1.93 10^3/uL (1.2-3.4); Absolute Monocyte Count 1.49 10^3/uL (0.1-0.8); Absolute Neutrophil Count 5.18 10^3/uL (1.2-6.7); Atypical Lymphocytes % 5 %; Bands % 1 %
[2024-05-01 21:48] LABS: Diff Comment Manual Differential; RBC Morphology Normal
[2024-05-01 22:12] LABS: ALT 24 U/L (16-63); AST 26 U/L (15-37); Albumin 3.2 g/dL (3.4-5.0); Alkaline Phosphatase 80 U/L (46-116); Anion Gap 9.7 mmol/L (3-11); BUN 21 mg/dL (7-18); Bilirubin, Total 0.62 mg/dL (0.2-1.0); CO2 30.3 mmol/L (21.0-32.0); Calcium 8.6 mg/dL (8.5-10.1); Chloride 97 mmol/L (98-107); Estimated GFR 81.98 (mL/min/1.73m2); Glucose 100 mg/dL (74-106); Magnesium 2.2 mg/dL (1.8-2.4); Potassium 3.2 mmol/L (3.5-5.1); Sodium 137 mmol/L (136-145); Total Protein 6.8 g/dL (6.4-8.2)
== END 2024-05-01 14:07 | disposition home or self-care (01) ==
LOC: LBN 14:06
PROVIDERS: PCP Family Medicine; Visit Provider Family Medicine
DX: Z00.00 Encounter for general adult medical examination without abnormal findings (principal); A08.4 Viral intestinal infection, unspecified; R09.89 Other specified symptoms and signs involving the circulatory and respiratory systems
CPT/HCPCS: 80053; 83735; 85025

== ENCOUNTER 2024-05-04 09:47 | Outpatient (CLI) | payer MEDICARE, SELFPAY ==
--- NOTE | 2024-05-04 10:00 | DI.RAD_ITS ---
Exam(s) XR CHEST 2V PA LATERAL EXAM: XR CHEST 2V PA LATERAL CLINICAL HISTORY: eval pna. TECHNIQUE: 2D digital imaging was performed. COMPARISON: No exams were available for comparison FINDINGS: 2 views: Heart size is normal. The mediastinum is not widened. Healed left-sided rib fractures are noted. No left lung findings. Mild increased markings are noted near the right lung base. No pleural effusions. Evidence of previous laparotomy. Tenting of the r ight hemidiaphragm noted. IMPRESSION: There are mild increased markings in the lower right lung field. Possible representing mild infiltra te. There are no pleural effusions. DATA REPOSITORY: RADIATION DOSE DELIVERED:
--- NOTE | 2024-05-04 10:14 | DI.VRAD_ITS ---
PROCEDURE INFORMATION: Exam: XR Chest Exam date and time: 05/04/2024 10:00 AM Age: 68 years old Clinical indication: Other: Eval for pneumonia; Prior surgery; Surgery date: 6+ months; Surgery type: Stomach 45 years ago TECHNIQUE: Imaging protocol: Radiologic exam of the chest. Views: 2 views. COMPARISON: CR XR SHOULDER RT COMPLETE 2+V 08/23/2021 3:39 PM FINDINGS: Lungs: Opacity in the lower lobes on the lateral may represent atelectasis or pneumonia.. Hyperexpanded lung cade consistent with COPD. Pleural spaces: Unremarkable. No pleural effusion. No pneumothorax. Heart/Mediastinum: Unremarkable. No cardiomegaly. Bones/joints: Healed left rib fractures IMPRESSION: Opacity in the lower lobes on the lateral may represent atelectasis or pneumonia.. Dictated and Authenticated by: Antony Soares MD. Orderin Katie Hackett MD
== END 2024-05-04 10:07 ==
PROVIDERS: PCP Family Medicine; Visit Provider Nurse Practitioner Family
DX: R05.9 Cough, unspecified (principal)
CPT/HCPCS: 71046

== ENCOUNTER 2024-09-25 16:58 | Outpatient (REF) | payer MEDICARE, SELFPAY ==
[2024-09-25 20:54] LABS: Anion Gap 4.4 mmol/L (3-11); BUN 19 mg/dL (7-18); CO2 32.6 mmol/L (21.0-32.0); Calcium 8.9 mg/dL (8.5-10.1); Calculated LDL 86 mg/dL (<100); Chloride 101 mmol/L (98-107); Cholesterol 175 mg/dL (<200); Estimated GFR 95.80 (mL/min/1.73m2); Glucose 125 mg/dL (74-106); HDL Cholesterol 47 mg/dL (>or=40); Potassium 3.7 mmol/L (3.5-5.1); Sodium 138 mmol/L (136-145); Triglyceride 212 mg/dL (<150)
[2024-09-26 18:29] LABS: PSA, Screening 3.2 ng/mL (<=4.5)
[2024-09-26 19:14] LABS: Hepatitis C Ab w Rflx HCV PCR Negative (Negative)
== END 2024-09-25 16:59 | disposition home or self-care (01) ==
LOC: LBN 16:58
PROVIDERS: PCP Family Medicine; Visit Provider Family Medicine
DX: Z11.59 Encounter for screening for other viral diseases (principal); Z12.5 Encounter for screening for malignant neoplasm of prostate; Z13.6 Encounter for screening for cardiovascular disorders; I10 Essential (primary) hypertension
CPT/HCPCS: 80048; 80061; 84153; 86803